=== PATIENT | female | born 1945 | race Caucasian/White ===

== ENCOUNTER → 2016-10-22 | Outpatient (CLI) | payer OTHER ==
[2016-10-22 18:12] LABS: BLOOD UREA NITROGEN 33 mg/dl (7-18); BUN/CREATININE RATIO 22.1 (10-20); CALCIUM 8.9 mg/dl (8.5-10.1); CARBON DIOXIDE 27 mmol/L (21-32); CHLORIDE 108 mmol/L (98-107); GLUCOSE 86 mg/dl (70-99); POTASSIUM 4.2 mmol/L (3.5-5.1); SODIUM 141 mmol/L (136-145)
[2016-10-22 18:24] LABS: BASO % 0.4 %; BASO ABS # 0.02 K/uL (0-0.2); COMPLETE YES; EOS % 7.6 %; HEMATOCRIT 37.3 % (37-47); IG% 0.2 %; LYMPH % 32.5 %; LYMPH ABS # 1.79 K/uL (1.2-3.4); MEAN PLATELET VOLUME 10.3 fL (7.4-10.4); MONO % 6.7 %; NEUT % 52.6 %; PLATELET COUNT 219 K/uL (130-400); RED BLOOD COUNT 3.97 M/uL (4.2-5.4); WHITE BLOOD COUNT 5.51 K/uL (4.8-10.8)
== END | disposition home or self-care (01) ==
LOC: C.LABPVFM 14:33
PROVIDERS: ATTEND Nurse Practitioner
DX: K04.7 Periapical abscess without sinus (principal); Z11.59 Encounter for screening for other viral diseases

== ENCOUNTER → 2017-02-22 | Outpatient (CLI) | payer OTHER ==
[2017-02-22 13:03] LABS: BLOOD UREA NITROGEN 25 mg/dl (7-18); BUN/CREATININE RATIO 18.5 (10-20); CALCIUM 8.9 mg/dl (8.5-10.1); CARBON DIOXIDE 26 mmol/L (21-32); CHLORIDE 107 mmol/L (98-107); CREATININE 1.34 mg/dl (0.60-1.20); GLUCOSE 97 mg/dl (70-99); POTASSIUM 3.7 mmol/L (3.5-5.1); SODIUM 138 mmol/L (136-145)
== END | disposition home or self-care (01) ==
LOC: C.LABPVFM 10:47
PROVIDERS: ATTEND Obstetrics & Gynecology Gynecologic Oncology
DX: E44.0 Moderate protein-calorie malnutrition (principal); C56.9 Malignant neoplasm of unspecified ovary; E87.6 Hypokalemia; Z93.6 Other artificial openings of urinary tract status

== ENCOUNTER → 2017-03-24 | Outpatient (CLI) | payer OTHER ==
[2017-03-24 17:35] LABS: BASO % 0.2 %; BASO ABS # 0.02 K/uL (0-0.2); EOS % 2.6 %; EOS ABS # 0.22 K/uL (0-0.5); HEMATOCRIT 28.5 % (37-47); HEMOGLOBIN 9.4 g/dL (12.0-16.0); IG# 0.24 K/uL (0.00-0.02); LYMPH % 11.4 %; LYMPH ABS # 0.97 K/uL (1.2-3.4); MEAN CELL VOLUME 86.4 fL (80-100); MEAN CORPUSCULAR HEMOGLOBIN 28.5 pg (25-34); MEAN PLATELET VOLUME 8.8 fL (7.4-10.4); MONO % 7.1 %; NEUT % 75.9 %; NEUT ABS # 6.44 K/uL (1.4-6.5); PLATELET COUNT 469 K/uL (130-400); RED CELL DISTRIBUTION WIDTH CV 16.1 % (11.5-14.5); RED CELL DISTRIBUTION WIDTH SD 51.4 fL (36.4-46.3); WHITE BLOOD COUNT 8.49 K/uL (4.8-10.8)
[2017-03-24 17:46] LABS: BLOOD UREA NITROGEN 33 mg/dl (7-18); CALCIUM 9.3 mg/dl (8.5-10.1); CARBON DIOXIDE 26 mmol/L (21-32); CREATININE 2.32 mg/dl (0.60-1.20); GLUCOSE 101 mg/dl (70-99); POTASSIUM 4.1 mmol/L (3.5-5.1); SODIUM 130 mmol/L (136-145)
== END | disposition home or self-care (01) ==
LOC: C.LABPVFM 15:51
PROVIDERS: ATTEND Nurse Practitioner Family
DX: R30.0 Dysuria (principal)

== ENCOUNTER → 2017-03-28 | Outpatient (CLI) | payer OTHER ==
[2017-03-28 17:27] LABS: BLOOD UREA NITROGEN 29 mg/dl (7-18); CALCIUM 9.3 mg/dl (8.5-10.1); CARBON DIOXIDE 25 mmol/L (21-32); CREATININE 1.77 mg/dl (0.60-1.20); GLUCOSE 100 mg/dl (70-99); POTASSIUM 3.9 mmol/L (3.5-5.1); SODIUM 133 mmol/L (136-145)
== END | disposition home or self-care (01) ==
LOC: C.LABPVFM 11:28
PROVIDERS: ATTEND Nurse Practitioner Family
DX: R79.89 Other specified abnormal findings of blood chemistry (principal)